=== PATIENT | female | born 1940 | race Caucasian/White ===

== ENCOUNTER 2018-05-09 05:00 | Emergency (ER) | payer MEDICARE, OTHER ==
[2018-05-09] MEDS ORDERED: IBUPROFEN 600 MG TABLET PO STA (05:22)
[2018-05-09] MEDS ORDERED: ACETAMINOPHEN 500 MG TABLET PO STA (05:22)
[2018-05-09] MEDS ORDERED: LIDOCAINE PATCH 5% TOP STA (05:22)
--- NOTE | 2018-05-09 05:38 | ED Physician Documentation ---
PD HPI TRUNK INJURY - Stated complaint Stated Complaint: MID BACK PAIN - Chief complaint Chief Complaint: Back Pain - History obtained from History obtained from: Patient - History of Present Illness Location: Right chest Timing - onset: How many weeks ago (3) Timing - details: Gradual onset, Still present Quality: Pain, Spasm, Similar to prior episodes Associated symtptoms: No: Weakness, Numbness, Tingling, Swelling Similar symptoms before: No diagnosis Recently seen: Not recently seen - Additional information Additional information: Patient is a 77 year old female who is presenting to the emergency department for right sided chest pain. Patient states that the pain has been going on for the last three weeks. It starts in the center of her back and radiates out. Patient denied any trauma. patient is out here on vacation and only had aspirin in the house so has been taking intermittent aspirin for the pain. Review of Systems Constitutional: denies: Fever, Chills Respiratory: denies: Dyspnea, Cough, Wheezing GI: denies: Nausea, Vomiting Skin: denies: Rash, Lesions Musculoskeletal: reports: Back pain PD PAST MEDICAL HISTORY - Present Medications Home Medications: Ambulatory Orders Medication Instructions Recorded Confirmed Lidocaine Patch 5% [Lidoderm Patch] 1 each TOP DAILY #10 patch 05/09/18 PD ED PE NORMAL - Vitals Vital signs reviewed: Yes - General General: Alert and oriented X 3, No acute distress, Well developed/nourished - HEENT HEENT: Atraumatic - Cardiac Cardiac: RRR - Respiratory Respiratory: No respiratory distress, Clear bilaterally - Abdomen Abdomen: Soft, Non tender, Non distended - Derm Derm: Normal color, No rash - Extremities Extremities: No deformity, Normal ROM s pain - Neuro Neuro: Alert and oriented X 3, No motor deficit, Normal speech Eye Opening: Spontaneous Motor: Obeys Commands - Psych Psych: Normal mood Results - Vitals Vitals: Vital Signs - 24 hr 05/09/18 05:05 Temperature 36.5 C Heart Rate 73 Respiratory 17 Rate Blood Pressure 157/94 H O2 Saturation 100 Oxygen O2 Source Room air PD MEDICAL DECISION MAKING - ED course Complexity details: reviewed old records, re-evaluated patient, considered differential, d/w patient ED course: Patient was seen and examined at bedside. patient was well appearing in no distress. Patient's bra was very tight and likely contributing. Also patient was underdosing her medications. patient was treated with ibuprofen, tylenol and a lidoderm patch with good relief. patient and were given detailed discharge and follow up instructions and were stable for outpatient follow up. - Sepsis Event Vital Signs: Vital Signs - 24 hr 05/09/18 05:05 Temperature 36.5 C Heart Rate 73 Respiratory 17 Rate Blood Pressure 157/94 H O2 Saturation 100 Oxygen O2 Source Room air Departure - Departure Disposition: 01 Home, Self Care Clinical Impression: Back pain Condition: Fair Instructions: ED Spasm Back No Trauma Follow-Up: primary,care provider [Other] - Within 3 Days Prescriptions: Lidocaine Patch 5% [Lidoderm Patch] 1 each TOP DAILY #10 patch Comments: Your symptoms today are likely being caused by a muscle strain. The first thing you should do is change your bra. It is too tight and likely contributing to your pain. You should also take medications on a more regular basis. You should take ibuprofen 600mg and tylenol 1000mg every 6 hours for the next few days. You can also try applying ice or heat to the area. You should monitor for sign of rash. You may erturn to the emergency department at any time for new, worsening or uncontrollable symptoms.
[2018-05-09 05:59] VITALS: BP 159/79
== END 2018-05-09 05:55 | disposition home or self-care (01) ==
LOC: ED 05:00
DX: M54.9 Dorsalgia, unspecified (principal); Z91.14 Patient's other noncompliance with medication regimen
CPT/HCPCS: 99283; A9270